=== PATIENT | female | born 1940 | race Caucasian/White ===

== ENCOUNTER 2016-10-12 11:29 | Inpatient (IN) | payer MEDICARE, BC ==
[2016-10-12] VITALS (9 sets, daily range): BP systolic 108–149; BP diastolic 69–79; PULSE 62–97; RESP 15–20; TEMP 96.5–98.3; O2SAT 95–98
[~2016-10-12] VITALS: Ht 162.6 cm; Wt 104.2 kg
[~2016-10-12 11:29] MED LIST: ACIDTAB4 PO; ALLO100T PO; ASPI81TA82 PO; BISO5TAB5 PO; CHOL100010 PO; CITA10TA4 PO; COLC1TAB7 PO; FOLI1 PO; LANTINJ SQ; LASI20TA PO; LEVA500T PO; LEVO.05 PO; LOPE2 PO; METF500 PO; METR250 PO; OXYC1SOL5 PO; PERI8.6T PO; PIOG30 PO; PROM25TA5 PO; TRAD5TAB PO; ZOFR4TAB3 SL
[2016-10-12] MEDS ORDERED: SODIUM CHLOR 0.9% 1000 ML INJ 1,000 ML IV SCH (11:46)
[2016-10-12] MEDS ORDERED: [UNRECOGNIZED DRUG - REMARK] (11:46)
--- NOTE | 2016-10-12 11:52 | PD ---
HPI Chief Complaint: Flank/Kidney Pain Time Seen by Provider: 11:42 Travel History International Travel<30 days: No Contact w/Intl Traveler<30days: No Traveled to known affect area: No History of Present Illness HPI Patient is a 76-year-old female who presents to emergency room for evaluation of possible pyelonephritis. Patient reports that she was seen at urgent care center on October 10, 2016 and was diagnosed with a urinary tract infection. Patient was started on Cipro 250 mg twice a day, patient reports that she return to the urgent care center today as her symptoms have been persistent. Patient reports that she still has left-sided flank pain radiating towards her abdomen. Patient reports that she is not having any fevers or chills, denies urinary urgency or frequency. Denies constipation or diarrhea. Denies any hematuria, denies history of kidney stones in the past, she was sent to the emergency room by urgent care center to rule out pyelonephritis versus nephrolithiasis. PFSH Past Medical History Arthritis: Yes Autoimmune Disease: No Depression: Yes Heart Rhythm Problems: No Cancer: No Cardiovascular Problems: Yes High Cholesterol: No Chest Pain: No Congestive Heart Failure: No Cerebrovascular Accident: Yes (TIA X 2.) Diabetes: Yes Patient Takes Glucophage: No Diminished Hearing: No Endocrine: Yes Gastrointestinal Disorders: Yes (DIVERTICULITIS) GERD: No Gout: Yes Genitourinary: Yes ("KIDNEY PROBLEMS") Headaches: Yes Hiatal Hernia: Yes Hypertension: Yes Immune Disorder: No Implanted Vascular Access Dvce: Yes Kidney Stones: No Musculoskeletal: Yes Neurologic: Yes Psychiatric: No Reproductive: No Respiratory: Yes Migraines: No Renal Failure: No Sickle Cell Disease: No Sleep Apnea: Yes (USES C-PAP.) Thyroid Disease: Yes Ulcer: No ?: Not Past Surgical History Abdominal Surgery: Yes (UMBILICAL HERNIA , GALLBLADDER REMOVED.) Arteriovenous Shunt: No Cholecystectomy: Yes Endocrine Surgery: No Eye Surgery: No Genitourinary Surgery: No Gynecologic Surgery: Yes (HYSTERECTOMY) Hysterectomy: Yes Insulin Pump: No Joint Replacement: Yes (LEFT KNEE) Other Surgery: Yes (SINUS SURGERY X 2) Social History Alcohol Use: No Tobacco Use: No (quit 1965) Substance Use: No Allergies-Medications (Allergen,Severity, Reaction): Coded Allergies: Ceclor (Unverified Allergy, Unknown, UNKNOWN, 10/12/16) Reported Meds & Prescriptions Reported Meds & Active Scripts Active Reported [Does Not Have List] Review of Systems General / Constitutional: No: Fever Eyes: No: Visual changes HENT: No: Headaches Cardiovascular: No: Chest Pain or Discomfort Respiratory: No: Shortness of Breath Gastrointestinal: No: Nausea, Vomiting, Abdominal Pain Genitourinary: Positive: Flank Pain, No: Urgency, Frequency, Dysuria, Hematuria Musculoskeletal: No: Pain Skin: No Rash Neurologic: No: Weakness Psychiatric: No: Depression Endocrine: No: Polydipsia Hematologic/Lymphatic: No: Easy Bruising Physical Exam Narrative GENERAL: nad, nontoxic SKIN: Focused skin assessment warm/dry. HEAD: Atraumatic. Normocephalic. EYES: Pupils equal and round. No injection or drainage. ENT: No nasal bleeding or discharge. Mucous membranes pink and moist. NECK: Trachea midline. No JVD. CARDIOVASCULAR: Regular rate and rhythm. No murmur appreciated. RESPIRATORY: No accessory muscle use. Clear to auscultation. Breath sounds equal bilaterally. GASTROINTESTINAL: Abdomen soft, non-tender, nondistended. left sided flank pain MUSCULOSKELETAL: No obvious deformities. No clubbing. No cyanosis. No edema. NEUROLOGICAL: Awake and alert. Normal speech. PSYCHIATRIC: Appropriate mood and affect; insight and judgment normal. Data Data Last Documented VS Vital Signs Date Time Temp Pulse Resp B/P Pulse Ox O2 Delivery O2 Flow Rate FiO2 10/12/16 14:18 76 20 142/75 98 10/12/16 11:33 98.3 Orders Complete Blood Count With Diff (10/12/16 11:46) Comprehensive Metabolic Panel (10/12/16 11:46) Prothrombin Time / Inr (Pt) (10/12/16 11:46) Act Partial Throm Time (Ptt) (10/12/16 11:46) Urinalysis - C+S If Indicated (10/12/16 11:46) Ct Abd/Pel W/O Iv Contrast (10/12/16 11:46) Iv Access Insert/Monitor (10/12/16 11:46) Oximetry (10/12/16 11:46) Morphine Inj (Morphine Inj) (10/12/16 12:00) Ondansetron Inj (Zofran Inj) (10/12/16 12:00) Sodium Chlor 0.9% 1000 Ml Inj (Ns 1000 M (10/12/16 11:46) Sodium Chloride 0.9% Flush (Ns Flush) (10/12/16 12:00) Urine Culture (10/12/16 11:55) Levofloxacin 750 Mg Premix Inj (Levaquin (10/12/16 13:00) Admit Order (Ed Use Only) (10/12/16 14:19) Labs Laboratory Tests Test 10/12/16 10/12/16 11:55 12:00 Urine Collection Type CLEAN CATCH Urine Color STRAW Urine Turbidity CLEAR Urine pH 5.5 Urine Specific [place] 1.005 Urine Protein NEG mg/dL Urine Glucose (UA) NEG mg/dL Urine Ketones NEG mg/dL Urine Occult Blood NEG Urine Nitrite NEG Urine Bilirubin NEG Urine Leukocyte Esterase LARGE Urine RBC 0-3 /hpf Urine WBC 20-24 /hpf Urine WBC Clumps MOD Urine Squamous Epithelial 0-5 /hpf Cells Urine Transitional Epithelial 0-5 /hpf Cells Urine Renal Epithelial Cells /hpf Urine Bacteria FEW /hpf Microscopic Urinalysis Comment CULTURE INDICATED White Blood Count 9.4 TH/MM3 Red Blood Count 4.07 MIL/MM3 Hemoglobin 13.0 GM/DL Hematocrit 38.6 % Mean Corpuscular Volume 94.8 FL Mean Corpuscular Hemoglobin 31.9 PG Mean Corpuscular Hemoglobin 33.7 % Concent Red Cell Distribution Width 13.9 % Platelet Count 236 TH/MM3 Mean Platelet Volume 7.8 FL Neutrophils (%) (Auto) 66.0 % Lymphocytes (%) (Auto) 23.7 % Monocytes (%) (Auto) 6.6 % Eosinophils (%) (Auto) 3.2 % Basophils (%) (Auto) 0.5 % Neutrophils # (Auto) 6.3 TH/MM3 Lymphocytes # (Auto) 2.2 TH/MM3 Monocytes # (Auto) 0.6 TH/MM3 Eosinophils # (Auto) 0.3 TH/MM3 Basophils # (Auto) 0.0 TH/MM3 CBC Comment DIFF FINAL Differential Comment Prothrombin Time 10.2 SEC Prothromb Time International 0.9 RATIO Ratio Activated Partial 24.1 SEC Thromboplast Time Sodium Level 141 MEQ/L Potassium Level 4.0 MEQ/L Chloride Level 106 MEQ/L Carbon Dioxide Level 27.9 MEQ/L Anion Gap 7 MEQ/L Blood Urea Nitrogen 19 MG/DL Creatinine 1.50 MG/DL Estimat Glomerular Filtration 34 ML/MIN Rate Random Glucose 83 MG/DL Calcium Level 8.8 MG/DL Total Bilirubin 0.8 MG/DL Aspartate Amino Transf 30 U/L (AST/SGOT) Alanine Aminotransferase 26 U/L (ALT/SGPT) Alkaline Phosphatase 92 U/L Total Protein 7.6 GM/DL Albumin 3.4 GM/DL MDM Medical Decision Making Medical Screen Exam Complete: Yes Emergency Medical Condition: Yes Interpretation(s) Vital Signs Date Time Temp Pulse Resp B/P Pulse Ox O2 Delivery O2 Flow Rate FiO2 10/12/16 11:33 98.3 81 15 149/77 97 Differential Diagnosis Pyelonephritis, nephrolithiasis, muscle strain/contusion Narrative Course 76-year-old female who presents to emergency room with complaints of left sided flank pain since October 10, 2016. She was seen at urgent care center and was diagnosed with a urinary tract infection was started on Cipro 250mg by mouth twice a day. Patient reports that she returned to the urgent care center today as symptoms have worsened. Reports that she was sent to ER by urgent care for evaluation of pyelonephritis versus kidney stone. Labs including UA ordered. CT abdomen pelvis ordered without IV contrast CBC & BMP Diagram 10/12/16 12:00 ct abdomen and pelvis: patient with fullness to the right collecting system cr: 1.5 UA positive for large leuk esterase as well as 20-24 wbc and mod wbc clumps, patient with left sided flank pain pt failed outpt treatment with cipro 250mg bid, will admit with diagnosis of pyelonephritis case reviewed with dr sharma who accepts pt to service Diagnosis Primary Impression: Pyelonephritis Admitting Information Admitting Physician Requests: Admit Romana Almendarez DO Oct 12, 2016 11:52
[2016-10-12] MEDS ORDERED: MORPHINE SULFATE 4 MG/ML INJ IV PUSH ONE (12:00)
[2016-10-12] MEDS ORDERED: ONDANSETRON HCL 4 MG/2 ML VIAL IVP ONE (12:00)
[2016-10-12] MEDS ORDERED: SODIUM CHLORIDE 0.9% FLUSH 10 ML FLUSH IV FLUSH PRN ×2 (12:00→14:45)
[2016-10-12 12:13] LABS: AUTOMATED NEUTROPHIL # 6.3 TH/MM3 (1.8-7.7); BASOPHIL % 0.5 % (0.0-2.0); EOSINOPHIL # 0.3 TH/MM3 (0-0.4); EOSINOPHIL % 3.2 % (0.0-4.0); HEMATOCRIT 38.6 % (35.0-46.0); HEMO FLAGS DIFF FINAL; LYMPH % 23.7 % (9.0-44.0); LYMPHOCYTE # 2.2 TH/MM3 (1.0-4.8); MEAN CELL VOLUME 94.8 FL (80.0-100.0); MEAN CORPUSCULAR HEMOGLOBIN 31.9 PG (27.0-34.0); MEAN CORPUSCULAR HGB CONC 33.7 % (32.0-36.0); MONO % 6.6 % (0.0-8.0); PLATELET COUNT 236 TH/MM3 (150-450); RED BLOOD COUNT 4.07 MIL/MM3 (4.00-5.30); RED CELL DISTRIBUTION WIDTH 13.9 % (11.6-17.2); WHITE BLOOD COUNT 9.4 TH/MM3 (4.0-11.0)
[2016-10-12 12:17] LABS: BLOOD, URINE NEG (NEG); GLUCOSE,URINE NEG (NEG); KETONE, URINE NEG (NEG); NITRITE,URINE NEG (NEG); PH, URINE 5.5 (5.0-8.5)
[2016-10-12 12:20] LABS: CHLORIDE 106 MEQ/L (98-107); SODIUM (NA) 141 MEQ/L (136-145)
[2016-10-12 12:23] LABS: ANION GAP 7 MEQ/L (5-15); BICARBONATE 27.9 MEQ/L (21.0-32.0)
[2016-10-12 12:23] LABS: METHOD OF COLLECTION CLEAN CATCH; URINE COLOR STRAW (YELLW/STRAW)
[2016-10-12 12:24] LABS: BACTERIA, URINE FEW /hpf; RBC, URINE 0-3 /hpf (0-3)
[2016-10-12 12:24] LABS: BLOOD UREA NITROGEN 19 MG/DL (7-18)
[2016-10-12 12:25] LABS: COMMENT (UR) CULTURE INDICATED; CULTURE IF INDICATED CULTURE INDICATED; SQUAMOUS EPITHELIAL CELL URINE 0-5 /hpf (0-5); TRANSITIONAL EPI CELLS, URINE 0-5 /hpf
[2016-10-12 12:25] LABS: APTT (PATIENT) 24.1 SEC (24.3-30.1); INTERNATIONAL NORMALIZED RATIO 0.9 RATIO; PROTHROMBIN TIME - PATIENT 10.2 SEC (9.8-11.6)
[2016-10-12 12:26] LABS: ALT (GPT) 26 U/L (10-53)
[2016-10-12 12:27] LABS: AST (GOT) 30 U/L (15-37); GLOMERULAR FILTRATION RATE 34 ML/MIN (>89)
[2016-10-12 12:28] LABS: TOTAL BILIRUBIN ADULT 0.8 MG/DL (0.2-1.0)
[2016-10-12 12:29] LABS: ALKALINE PHOSPHATASE 92 U/L (45-117)
[2016-10-12] MEDS ORDERED: LEVOFLOXACIN 750 MG PREMIX INJ 150 ML IV ONE (13:00)
--- NOTE | 2016-10-12 13:54 | RADHPO ---
EXAM DATE/TIME: 10/12/2016 12:16 [facility] COMPARISON: CT ABDOMEN & PELVIS W CONTRAST, September 27, 2014, 21:32. INDICATIONS : Left flank pain for 1 week. ORAL CONTRAST: No oral contrast ingested. RADIATION DOSE: 37.28 CTDIvol (mGy) MEDICAL HISTORY : Cardiovascular disease. Hypertension. Diabetes mellitus type 2.Hiatal Hernia SURGICAL HISTORY : Cholecystectomy. Hysterectomy. Umbilical hernia repair. ENCOUNTER: Initial ACUITY: 1 week PAIN SCALE: 7/10 LOCATION: Left flank TECHNIQUE: Volumetric scanning of the abdomen and pelvis was performed. Using automated exposure control and ad justment of the mA and/or kV according to patient size, radiation dose was kept as low as reasonably achievable to obtain optimal diagnostic quality images. FINDINGS: No renal stones are seen. There is mild fullness of the right collecting system. The ureters appear clear. The bladder is unremarkable. There are colonic diverticula present. Significant inflammatory change is not seen. The liver, spleen, pancreas and adrenal glands are normal. Clips are seen in the right upper quadran t from prior cholecystectomy. Scattered calcifications are seen at the arterial system. No aneurysm is seen. Significant adenopathy is not appreciated. There is degenerative change in the lumbar spi ne. CONCLUSION: 1. No renal stones are seen. 2. Colonic diverticula. The previously seen diverticulitis has resolved. Shaun French MD on October 12, 2016 at 13:45 Board Certified Radiologist. This report was verified electronically.
--- NOTE | 2016-10-12 14:40 | HHI.HP ---
[facility] Non[facility]Staff Admission Diagnosis Pylenephritis Diagnoses: Chief Complaint: Flank pain. Travel History International Travel<30 Days: No Contact w/Intl Traveler <30 Da: No Traveled to Known Affected Are: No History of Present Illness Ms. Ramirez is a pleasant 76 year old female who presents to the ED due to left flank pain, nausea, vomiting and generalized not feeling well. Since Friday, patient has been having left flank pain. She denies any dysuria, hematuria but reports brownish color urine. She had fever last week and in the last few days she has had chills. She also reports cough in the last 2-3 days. Patient originally went to an urgent care but was advised to come to the ED to rule out pyelonephritis vs. kidney stone. Patient denies any changes in bowel habits. No chest pain, shortness of breath. Review of Systems Except as stated in HPI: all other systems reviewed are Neg Past Family Social History Past Medical History Diabetes mellitus Gout Diverticulitis Hypertension Past Surgical History Hysterectomy Cholecystectomy Allergies: Coded Allergies: Ceclor (Unverified Allergy, Unknown, UNKNOWN, 10/12/16) Family History No history of Alzheimer's or Parkinson's. Social History Denies using tobacco or alcohol. Physical Exam Vital Signs Vital Signs Date Time Temp Pulse Resp B/P Pulse Ox O2 Delivery O2 Flow Rate FiO2 10/12/16 14:18 76 20 142/75 98 10/12/16 13:14 62 20 134/72 95 10/12/16 12:07 96 10/12/16 11:33 98.3 81 15 149/77 97 Physical Exam GENERAL: This is a well-nourished, well-developed patient, in no apparent distress. SKIN: No rashes, ecchymoses or lesions. Warm and dry. HEAD: Atraumatic. Normocephalic. No temporal or scalp tenderness. EYES: Pupils equal round and reactive. No injection or drainage. ENT: Nose without bleeding, purulent drainage or septal hematoma. Airway patent. NECK: Trachea midline. No lymphadenopathy. Supple, nontender, no meningeal signs. CARDIOVASCULAR: Regular rate and rhythm without murmurs, gallops, or rubs. No JVD. RESPIRATORY: Clear to auscultation. Breath sounds equal bilaterally. No wheezes , rales, or rhonchi. GASTROINTESTINAL: Abdomen soft, non-tender, nondistended. No guarding. mild CVA tenderness on the left side. MUSCULOSKELETAL: Extremities without clubbing, cyanosis, or edema. NEUROLOGICAL: Awake and alert. Cranial nerves II through XII intact. No focal neurological deficits. Normal speech. Laboratory Laboratory Tests Test 10/12/16 10/12/16 11:55 12:00 Urine Collection Type CLEAN CATCH Urine Color STRAW Urine Turbidity CLEAR Urine pH 5.5 Urine Specific [place] 1.005 Urine Protein NEG Urine Glucose (UA) NEG Urine Ketones NEG Urine Occult Blood NEG Urine Nitrite NEG Urine Bilirubin NEG Urine Leukocyte Esterase LARGE Urine RBC 0-3 Urine WBC 20-24 Urine WBC Clumps MOD Urine Squamous Epithelial 0-5 Cells Urine Transitional Epithelial 0-5 Cells Urine Renal Epithelial Cells Urine Bacteria FEW Microscopic Urinalysis Comment CULTURE INDICATED White Blood Count 9.4 Red Blood Count 4.07 Hemoglobin 13.0 Hematocrit 38.6 Mean Corpuscular Volume 94.8 Mean Corpuscular Hemoglobin 31.9 Mean Corpuscular Hemoglobin 33.7 Concent Red Cell Distribution Width 13.9 Platelet Count 236 Mean Platelet Volume 7.8 Neutrophils (%) (Auto) 66.0 Lymphocytes (%) (Auto) 23.7 Monocytes (%) (Auto) 6.6 Eosinophils (%) (Auto) 3.2 Basophils (%) (Auto) 0.5 Neutrophils # (Auto) 6.3 Lymphocytes # (Auto) 2.2 Monocytes # (Auto) 0.6 Eosinophils # (Auto) 0.3 Basophils # (Auto) 0.0 CBC Comment DIFF FINAL Differential Comment Prothrombin Time 10.2 Prothromb Time International 0.9 Ratio Activated Partial 24.1 Thromboplast Time Sodium Level 141 Potassium Level 4.0 Chloride Level 106 Carbon Dioxide Level 27.9 Anion Gap 7 Blood Urea Nitrogen 19 Creatinine 1.50 Estimat Glomerular Filtration 34 Rate Random Glucose 83 Calcium Level 8.8 Total Bilirubin 0.8 Aspartate Amino Transf 30 (AST/SGOT) Alanine Aminotransferase 26 (ALT/SGPT) Alkaline Phosphatase 92 Total Protein 7.6 Albumin 3.4 Date/Time Procedure Status Source Growth 10/12/16 11:55 Urine Culture Received Urine Clean Catch Pending Result Diagram: 10/12/16 1200 10/12/16 1200 Imaging Last Impressions Abdomen/Pelvis CT 10/12/16 1146 Signed Impressions: Service Date/Time: Friday, October 12, 2016 12:16 - CONCLUSION: 1. No renal stones are seen. 2. Colonic diverticula. The previously seen diverticulitis has resolved. Shaun French MD Assessment and Plan Problem List: (1) Pyelonephritis ICD Code: N12 Status: Acute Assessment and Plan Ms. Ramirez is a 76 year old female who presented to the ED on 10/12/2016 due to nausea, vomiting, left sided flank pain. CT abdomen/pelvis did not show any renal stone. - Probable acute pyelonephritis. - Patient is allergic to ceclor. We will continue Levaquin that was started in the ED. - PRN pain medications with Acetaminophen, Morphine. - Probable acute kidney injury Creatinine 1.50 on admission. - Will continue IV fluid. Monitor BUN, Creatinine. - Diabetes mellitus - Blood glucose within reasonable range. May consider sliding scale insulin, long acting insulin. No metformin for now. Full code. Lovenox. Physician Certification 2 Midnight Certification Type: Admission for Inpatient Services Order for Inpatient Services The services are ordered in accordance with Medicare regulations or non- Medicare payer requirements, as applicable. In the case of services not specified as inpatient-only, they are appropriately provided as inpatient services in accordance with the 2-midnight benchmark. Estimated LOS (days): 2 days is the estimated time the patient will need to remain in the hospital, assuming treatment plan goals are met and no additional complications. Post-Hospital Plan: Home Santa Aguilar DO Oct 12, 2016 14:40
[2016-10-12] MEDS: SODIUM CHLOR 0.9% 1000 ML INJ 1,000 ML IV SCH (14:44)
[2016-10-12] MEDS ORDERED: ACETAMINOPHEN 325 MG TAB PO PRN (14:45)
[2016-10-12] MEDS ORDERED: NALOXONE HCL 0.4 MG/ML AMP IV PRN (14:45)
[2016-10-12] MEDS ORDERED: MAGNESIUM HYDROXIDE SUSP 30 ML CUP PO PRN (14:45)
[2016-10-12] MEDS: ENOXAPARIN SODIUM 40 MG/0.4 ML SYRINGE SQ SCH (15:25)
[2016-10-12] MEDS: SODIUM CHLORIDE 0.9% FLUSH 10 ML FLUSH IV FLUSH SCH (20:04)
[2016-10-12] MEDS: MORPHINE SULFATE 4 MG/ML INJ IV PUSH PRN (21:48)
[2016-10-13] VITALS (7 sets, daily range): BP systolic 113–143; BP diastolic 62–86; PULSE 61–69; RESP 14–20; TEMP 96.2–97.2; O2SAT 95–97
[2016-10-13] MEDS: SODIUM CHLOR 0.9% 1000 ML INJ 1,000 ML IV SCH ×3 (00:36→21:12)
[2016-10-13] MEDS: ONDANSETRON HCL 4 MG/2 ML VIAL IVP PRN ×3 (01:18→15:33)
[2016-10-13] MEDS: MORPHINE SULFATE 4 MG/ML INJ IV PUSH PRN ×4 (01:19→16:00)
[2016-10-13 08:51] LABS: AUTOMATED NEUTROPHIL # 3.1 TH/MM3 (1.8-7.7); BASOPHIL % 0.3 % (0.0-2.0); EOSINOPHIL # 0.2 TH/MM3 (0-0.4); EOSINOPHIL % 4.4 % (0.0-4.0); HEMATOCRIT 33.6 % (35.0-46.0); HEMO FLAGS DIFF FINAL; LYMPH % 23.6 % (9.0-44.0); LYMPHOCYTE # 1.1 TH/MM3 (1.0-4.8); MEAN CELL VOLUME 96.7 FL (80.0-100.0); MEAN CORPUSCULAR HEMOGLOBIN 31.7 PG (27.0-34.0); MEAN CORPUSCULAR HGB CONC 32.8 % (32.0-36.0); MONO % 8.3 % (0.0-8.0); NEUT % 63.4 % (16.0-70.0); PLATELET COUNT 153 TH/MM3 (150-450); RED BLOOD COUNT 3.48 MIL/MM3 (4.00-5.30); RED CELL DISTRIBUTION WIDTH 14.2 % (11.6-17.2); WHITE BLOOD COUNT 4.9 TH/MM3 (4.0-11.0)
[2016-10-13 08:57] LABS: CHLORIDE 108 MEQ/L (98-107); POTASSIUM 4.1 MEQ/L (3.5-5.1); SODIUM (NA) 141 MEQ/L (136-145)
[2016-10-13] MEDS: SODIUM CHLORIDE 0.9% FLUSH 10 ML FLUSH IV FLUSH SCH ×2 (09:00→21:11)
[2016-10-13 09:04] LABS: ANION GAP 8 MEQ/L (5-15); BICARBONATE 25.2 MEQ/L (21.0-32.0); BLOOD UREA NITROGEN 15 MG/DL (7-18)
[2016-10-13 09:08] LABS: GLOMERULAR FILTRATION RATE 40 ML/MIN (>89)
[2016-10-13] MEDS ORDERED: GLUCAGON 1 MG/ML VIAL OTHER PRN (09:45)
[2016-10-13] MEDS ORDERED: DEXTROSE 50% IN WATER 50 ML VIAL(D50) IV PUSH PRN (09:45)
--- NOTE | 2016-10-13 10:24 | HHI.PR ---
Subjective Remarks Follow up for probable acute pyelonephritis, FRANCIS. Patient is doing well. However , this morning she had chest discomfort for about 30 minutes. No fever, chills. Chest discomfort did not radiate any where and it felt like chest pressure. Objective Vitals Vital Signs Date Time Temp Pulse Resp B/P Pulse Ox O2 Delivery O2 Flow Rate FiO2 10/13/16 08:00 96.7 64 20 143/82 97 10/13/16 07:57 96 21 10/13/16 01:38 18 10/13/16 00:41 97.2 61 14 113/62 96 10/12/16 20:28 96.5 63 20 130/74 97 10/12/16 20:14 96 21 10/12/16 16:47 81 20 108/69 97 10/12/16 15:57 96 21 10/12/16 15:26 97 20 141/79 98 10/12/16 14:18 76 20 142/75 98 10/12/16 13:14 62 20 134/72 95 10/12/16 12:07 96 10/12/16 11:33 98.3 81 15 149/77 97 I/O 10/12/16 10/12/16 10/12/16 10/13/16 10/13/16 10/13/16 07:00 15:00 23:00 07:00 15:00 23:00 Intake Total 1100 ml 360 ml 800 ml Balance 1100 ml 360 ml 800 ml Intake Oral 360 ml IV Total 1100 ml 800 ml # Voids 1 2 Result Diagram: 10/13/16 0751 10/13/16 0751 Imaging Last Impressions Abdomen/Pelvis CT 10/12/16 1146 Signed Impressions: Service Date/Time: Wednesday, October 12, 2016 12:16 - CONCLUSION: 1. No renal stones are seen. 2. Colonic diverticula. The previously seen diverticulitis has resolved. Shaun French MD Objective Remarks GENERAL: AOX3, NAD. SKIN: Warm and dry. HEAD: Normocephalic. EYES: No scleral icterus. No injection or drainage. NECK: Supple, trachea midline. No JVD or lymphadenopathy. CARDIOVASCULAR: Regular rate and rhythm without murmurs, gallops, or rubs. RESPIRATORY: Breath sounds equal bilaterally. No accessory muscle use. GASTROINTESTINAL: Abdomen soft, non-tender, nondistended. MUSCULOSKELETAL: No cyanosis, or edema. BACK: Nontender without obvious deformity. No CVA tenderness. Procedures None. A/P Problem List: (1) Pyelonephritis ICD Code: N12 Status: Acute Assessment and Plan Ms. Ramirez is a 76 year old female who presented to the ED on 10/12/2016 due to nausea, vomiting, left sided flank pain. CT abdomen/pelvis did not show any renal stone. - Chest pain - atypical. Resolved. EKG unremarkable for any acute changes. Troponin is negative. Will check second set of troponin. - Probable acute pyelonephritis. - Patient is allergic to ceclor. We will continue Levaquin. - Urine cx shows no growth. - PRN pain medications with Acetaminophen, Morphine. - Probable acute kidney injury Creatinine 1.50 on admission, improved to 1.20 today with eGFR 40. - Will continue IV fluid. Monitor BUN, Creatinine. - Diabetes mellitus - Blood glucose within reasonable range. No metformin for now. - Change diet to diabetic diet, start Levemir 5 units QHS and sliding scale insulin. - Hypothyroidism - Continue levothyroxine Full code. Lovenox. Santa Aguilar DO Oct 13, 2016 10:23
[2016-10-13] MEDS ORDERED: oxyCODONE/ACETAMINOPHEN 5 MG/325 MG TAB PO PRN (10:30)
[2016-10-13] MEDS: INSULIN ASPART SUPPLEMENTAL SCALE SQ SCH ×3 (11:00→21:00)
[2016-10-13] MEDS ORDERED: LEVOFLOXACIN 250 MG PREMIX INJ 50 ML IV SCH (13:00)
[2016-10-13] MEDS: ENOXAPARIN SODIUM 40 MG/0.4 ML SYRINGE SQ SCH (14:34)
[2016-10-13] MEDS ORDERED: INSULIN DETEMIR 100 UNITS/ML VIAL SQ SCH (21:00)
[2016-10-14] VITALS: BP_SYST 136; BP_SYST 142; BP_DIAS 76; BP_DIAS 79; PULSE 67; PULSE 69; RESP 18; TEMP 96.2; TEMP 97.5; O2SAT 96
[2016-10-14] MEDS ORDERED: LEVOTHYROXINE SODIUM 50 MCG TAB PO SCH (06:00)
[2016-10-14] MEDS: SODIUM CHLOR 0.9% 1000 ML INJ 1,000 ML IV SCH (06:27)
[2016-10-14] MEDS: INSULIN ASPART SUPPLEMENTAL SCALE SQ SCH ×2 (06:27→11:00)
[2016-10-14 08:00] VITALS: BP 146/84; PULSE 67; RESP 18; TEMP 97.6; O2SAT 97
[2016-10-14] MEDS ORDERED: ASPIRIN EC 81 MG TABEC PO SCH (09:00)
[2016-10-14 09:30] VITALS: O2SAT 95
[2016-10-14] MEDS: SODIUM CHLORIDE 0.9% FLUSH 10 ML FLUSH IV FLUSH SCH (09:58)
--- NOTE | 2016-10-14 11:44 | HHI.PR ---
Subjective Remarks Follow up for probable acute pyelonephritis, FRANCIS. Patient is doing well. No fever, chills. Tolerating diet well. Objective Vitals Vital Signs Date Time Temp Pulse Resp B/P Pulse Ox O2 Delivery O2 Flow Rate FiO2 10/14/16 09:30 95 21 10/14/16 08:00 97.6 67 18 146/84 97 10/14/16 00:00 97.5 67 18 136/79 96 10/13/16 20:52 95 21 10/13/16 20:00 96.2 69 18 142/76 96 10/13/16 16:00 96.8 66 20 128/74 97 10/13/16 15:38 18 10/13/16 12:00 96.7 64 20 131/86 96 I/O 10/13/16 10/13/16 10/13/16 10/14/16 10/14/16 10/14/16 07:00 15:00 23:00 07:00 15:00 23:00 Intake Total 800 ml 1090 ml 1892 ml 1235 ml Balance 800 ml 1090 ml 1892 ml 1235 ml Intake Oral 1090 ml 480 ml IV Total 800 ml 1892 ml 755 ml # Voids 2 3 6 # Bowel Movements 1 Result Diagram: 10/13/16 0751 10/13/16 0751 Imaging Last Impressions Abdomen/Pelvis CT 10/12/16 1146 Signed Impressions: Service Date/Time: Wednesday, October 12, 2016 12:16 - CONCLUSION: 1. No renal stones are seen. 2. Colonic diverticula. The previously seen diverticulitis has resolved. Shaun French MD Objective Remarks GENERAL: AOX3, NAD. SKIN: Warm and dry. HEAD: Normocephalic. EYES: No scleral icterus. No injection or drainage. NECK: Supple, trachea midline. No JVD or lymphadenopathy. CARDIOVASCULAR: Regular rate and rhythm without murmurs, gallops, or rubs. RESPIRATORY: Breath sounds equal bilaterally. No accessory muscle use. GASTROINTESTINAL: Abdomen soft, non-tender, nondistended. MUSCULOSKELETAL: No cyanosis, or edema. BACK: Nontender without obvious deformity. No CVA tenderness. Procedures None. A/P Problem List: (1) Pyelonephritis ICD Code: N12 Status: Acute Assessment and Plan Ms. Ramirez is a 76 year old female who presented to the ED on 10/12/2016 due to nausea, vomiting, left sided flank pain. CT abdomen/pelvis did not show any renal stone. - Chest pain - atypical. Resolved. EKG unremarkable for any acute changes. Troponin is negative. Will check second set of troponin. - Probable acute pyelonephritis. - Patient is allergic to ceclor. Patient received Levaquin. - Urine cx shows no growth. - PRN pain medications with Acetaminophen, Morphine. - Probable acute kidney injury Creatinine 1.50 on admission, improved to 1.30 - D/C fluid. Patient can be discharged home today. Advised patient to repeat BMP when she gets back to [place]. - Diabetes mellitus - Blood glucose within reasonable range. No metformin for now. - Change diet to diabetic diet, start Levemir 5 units QHS and sliding scale insulin. - Hypothyroidism - Continue levothyroxine Full code. Lovenox. Discharge patient to home Condition on discharge: Improved Regular Diet as tolerated Ad Saritha activity Rx written: Patient is advised to continue her home medications. - Percocet 5/325 Q6hrs PRN for pain. Follow-up with primary care physician within 1-2 weeks. Santa Aguilar DO Oct 14, 2016 11:44 am
[2016-10-14 12:00] VITALS: BP 140/80; PULSE 72; RESP 18; TEMP 97.7; O2SAT 97
[2016-10-14] MEDS ORDERED: LEVOFLOXACIN 250 MG TAB PO SCH (13:00)
[2016-10-14] MEDS ORDERED: OXYC1TAB63 PO (13:33)
--- NOTE | 2016-10-14 14:19 | EKG ---
Date Performed: 10/13/2016 Time Performed: 09:22:52 PTAGE: 76 years EKG: Possible ectopic atrial rhythm Borderline ECG NO PREVIOUS TRACING DOCTOR: Primo Fleming Interpretating Date/Time 10/14/2016 14:18:00
== END 2016-10-14 14:17 | disposition home or self-care (01) | DRG 690 ==
LOC: PHED 11:29 → PHEDA 14:21 → PHEDH 18:20 → PH3A 18:45
PROVIDERS: ADMIT Hospitalist; ATTEND Hospitalist
DX: N10 Acute pyelonephritis (principal); N17.9 Acute kidney failure, unspecified; Z88.1 Allergy status to other antibiotic agents; E11.9 Type 2 diabetes mellitus without complications; R07.89 Other chest pain; E03.9 Hypothyroidism, unspecified; Z86.73 Personal history of transient ischemic attack (TIA), and cerebral infarction without residual deficits; Z87.891 Personal history of nicotine dependence
CPT/HCPCS: 74176; 80048; 80053; 81001; 82948; 84484; 85025; 85610; 85730; 87086; 93005; 96361; 96365; 96375; J1650; J1956; J2270; J2405; J7030